=== PATIENT | male | born 1980 | race Caucasian/White ===

== ENCOUNTER 2020-04-28 07:37 | Emergency (ER) | payer OTHER ==
[2020-04-28 09:07] LABS: CORONAVIRUS 2019 SARS-COV-2 NEGATIVE (NEGATIVE); INFLUENZA A NAA NEGATIVE (NEGATIVE)
[2020-04-28 09:15] LABS: BASOPHIL 0.2 % (0-2); EOSINOPHIL 0.1 % (0-5); LYMPHOCYTE 9.4 % (15-48); MCH 29.6 pg (25.0-31.0); MCHC 33.3 g/dL (32.0-36.0); MCV 88.9 fL (78.0-100.0); MPV 11.1 fL (6.0-9.5); NEUTROPHIL 83.1 % (41-80); NRBC 0; PLT 125 K/uL (150-400); RBC 5.06 M/uL (4.70-6.00); RDW 12.3 % (11.5-14.0); WBC 8.2 K/uL (4.0-10.5)
[2020-04-28 09:52] LABS: ALBUMIN 3.4 g/dL (3.4-5.0); BILIRUBIN - TOTAL 0.5 mg/dL (0.2-1.0); CREATININE 1.29 mg/dL (0.67-1.17); GLOBULIN (CALCULATION) 3.5 g/dL; POTASSIUM 3.6 mmol/L (3.5-5.1); TOTAL PROTEIN 6.9 g/dL (6.4-8.2)
[2020-04-28 11:12] LABS: BILIRUBIN 1+ mg/dL (NEGATIVE); BLOOD NEGATIVE Ery/uL (NEGATIVE); CLARITY CLEAR (CLEAR); COLOR YELLOW (YELLOW); GLUCOSE (U) NORMAL (NORMAL); LEUKOCYTES NEGATIVE Leu/uL (NEGATIVE); NITRITE NEGATIVE (NEGATIVE); PROTEIN 1+ mg/dL (NEGATIVE); SPECIFIC GRAVITY 1.025 (1.001-1.030); UROBILINOGEN 0.2 mg/dL (0.2-1.0); pH 6.5 (5.0-9.0)
[2020-04-28 11:20] LABS: URINARY RBC RARE
== END 2020-04-28 12:10 | disposition home or self-care (01) ==
LOC: FER 07:37
PROVIDERS: Emergency Medicine
DX: R11.2 Nausea with vomiting, unspecified (principal); R19.7 Diarrhea, unspecified; E86.0 Dehydration; N17.9 Acute kidney failure, unspecified; R79.1 Abnormal coagulation profile; Z20.822 Contact with and (suspected) exposure to COVID-19
CPT/HCPCS: 36415; 71045; 80053; 81001; 83690; 85025; J7030; U0002